=== PATIENT | male | born 1950 | race African-American/Black ===

== ENCOUNTER 2021-06-18 11:40 | Day surgery (SDC) | payer MEDICARE, MEDICAID ==
[~2021-06-18] VITALS: Ht 177.8 cm; Wt 80.8 kg
[2021-06-18] MEDS ORDERED: normal saline 1000ml 1,000 ML IV SCH (12:10)
[2021-06-18] MEDS ORDERED: FOLI1TAB34 PO (12:22)
[2021-06-18] MEDS ORDERED: AMLO10TA13 PO (12:22)
[2021-06-18] MEDS ORDERED: SEVE800T28 (12:22)
[2021-06-18] MEDS ORDERED: CARV6.253 PO (12:22)
[2021-06-18] MEDS ORDERED: LIDOcaine 1% 30ml preserv. free vial ONE (12:24)
[2021-06-18] MEDS ORDERED: midazolam 1 mg/ML 2ml injection ONE (12:24)
[2021-06-18] MEDS ORDERED: fentaNYL/PF 50MCG/1 ML 2ML syringe ONE (12:24)
[2021-06-18] MEDS ORDERED: iohexol 300mg/ml 100ml inj. ONE (12:25)
[2021-06-18] MEDS ORDERED: heparin 1,000 UNITS/NS 500ml 500 ML ONE (12:25)
[2021-06-18 12:38] LABS: BASOPHILS % (AUTO) 0.5 % (0-1); EOSINOPHILS # (AUTO) 0.3 X10'3 (0-0.9); EOSINOPHILS % (AUTO) 4.4 % (0-6); HEMATOCRIT 32.3 % (42.0-52.0); HEMOGLOBIN 10.8 g/dl (14.0-17.9); LYMPHOCYTES # (AUTO) 1.3 X10'3 (1.1-4.8); MEAN CORPUSCULAR HEMOGLOBIN 31.7 PG (27.0-31.0); MEAN CORPUSCULAR HGB CONC 33.5 g/dL (33.0-36.5); MEAN CORPUSCULAR VOLUME 94.7 FL (78-98); MEAN PLATELET VOLUME 7.5 FL (7.4-10.4); MONOCYTES # (AUTO) 1.2 X10'3 (0-0.9); MONOCYTES % (AUTO) 18.5 % (2-12); NEUTROPHILS # (AUTO) 3.6 X10'3 (1.8-7.7); NEUTROPHILS % (AUTO) 56.6 % (42-75); PLATELET COUNT 303 X10'3 (140-440); RED BLOOD COUNT 3.41 X10'6 (4.70-6.10); RED CELL DISTRIBUTION WIDTH 15.8 % (11.5-14.5); WHITE BLOOD COUNT 6.4 X10'3 (4.5-11.0)
[2021-06-18 12:45] VITALS: BP 142/99
[2021-06-18 13:10] LABS: PLATELET ESTIMATE NORMAL; TOTAL CELLS COUNTED 100
[2021-06-18 13:15] LABS: ALBUMIN 3.7 G/DL (3.4-5.0); ANION GAP 14 (8-16); BLOOD UREA NITROGEN 40 MG/DL (7-18); BUN/CREATININE RATIO 3.9 (5.4-32.0); CALCIUM 9.6 MG/DL (8.5-10.1); CHLORIDE 104 MMOL/L (99-107); CREATININE 10.18 MG/DL (0.60-1.10); GLUCOSE 64 MG/DL (70-104); POTASSIUM 4.7 MMOL/L (3.5-5.1); SODIUM 147 MMOL/L (135-145); TOTAL CARBON DIOXIDE 28.7 MMOL/L (24-32); eGFR 6 ML/MIN
[2021-06-18 14:05] VITALS: BP 145/79
[2021-06-18 14:20] VITALS: BP 129/75
[2021-06-18 14:35] VITALS: BP 146/80
[2021-06-18 14:49] VITALS: BP 139/77
== END 2021-06-18 15:00 | disposition home or self-care (01) ==
LOC: SSTAY O 11:40
PROVIDERS: ATTEND Radiology Vascular & Interventional Radiology
DX: T82.858A Stenosis of other vascular prosthetic devices, implants and grafts, initial encounter (principal); Z79.899 Other long term (current) drug therapy; Z79.01 Long term (current) use of anticoagulants; Y83.2 Surgical operation with anastomosis, bypass or graft as the cause of abnormal reaction of the patient, or of later complication, without mention of misadventure at the time of the procedure; Y92.89 Other specified places as the place of occurrence of the external cause
CPT/HCPCS: 36415; 36901; 36902; 36907; 80048; 85025; 85610; 99152; 99153; C1725; C1769; C1894; J1644; J2250; J3010; J3490; Q9967; 85007; C2623

== ENCOUNTER 2022-12-04 06:35 | Day surgery (SDC) | payer BC, OTHER ==
[~2022-12-04] VITALS: Ht 177.8 cm; Wt 75.9 kg
[2022-12-04] VITALS (12 sets, daily range): BP systolic 156–182; BP diastolic 65–91; PULSE 83–98; RESP 14–17; TEMP 98.2; O2SAT 95–98
[~2022-12-04 06:35] MED LIST: AMLO10TA13 PO; CARV6.253 PO; FOLI1TAB34 PO; SEVE800T28
[2022-12-04] MEDS ORDERED: normal saline 1000ml 1,000 ML IV PRN (07:00)
[2022-12-04] MEDS ORDERED: SEVE800T8 PO (07:10)
[2022-12-04 07:34] LABS: BASOPHILS # (AUTO) 0.1 X10'3 (0-0.2); BASOPHILS % (AUTO) 0.9 % (0-1); EOSINOPHILS # (AUTO) 0.2 X10'3 (0-0.9); EOSINOPHILS % (AUTO) 2.8 % (0-6); LYMPHOCYTES # (AUTO) 1.3 X10'3 (1.1-4.8); LYMPHOCYTES % (AUTO) 18.2 % (21-51); MEAN CORPUSCULAR HEMOGLOBIN 30.7 PG (27.0-31.0); MEAN CORPUSCULAR HGB CONC 33.6 g/dL (33.0-36.5); MEAN CORPUSCULAR VOLUME 91.6 FL (78-98); MEAN PLATELET VOLUME 8.3 FL (7.4-10.4); MONOCYTES # (AUTO) 1.1 X10'3 (0-0.9); MONOCYTES % (AUTO) 15.5 % (2-12); NEUTROPHILS # (AUTO) 4.5 X10'3 (1.8-7.7); NEUTROPHILS % (AUTO) 62.6 % (42-75); PRE OP HEMOGLOBIN 11.1 g/dL (14.0-17.9); PRE OP PLATELET COUNT 224 X10'3 (140-440); PRE OP WHITE BLOOD COUNT 7.1 10'3 (4.8-10.8); RED BLOOD COUNT 3.61 X10'6 (4.70-6.10); RED CELL DISTRIBUTION WIDTH 16.4 % (11.5-14.5)
[2022-12-04 07:43] LABS: PROTHROMBIN TIME 10.5 SECONDS (9.0-12.0)
[2022-12-04 07:50] LABS: ALBUMIN 3.3 G/DL (3.4-5.0); ANION GAP 20 (8-16); BLOOD UREA NITROGEN 107 MG/DL (7-18); BUN/CREATININE RATIO 5.6 (10.0-20.0); CALCIUM 9.6 MG/DL (8.5-10.1); CHLORIDE 100 MMOL/L (99-107); CREATININE 19.07 MG/DL (0.60-1.10); GLUCOSE 100 MG/DL (70-104); POTASSIUM 4.6 MMOL/L (3.5-5.1); SODIUM 141 MMOL/L (135-145); TOTAL CARBON DIOXIDE 21.2 MMOL/L (24-32); eCRCL 4 ML/MIN; eGFR 3 ML/MIN
[2022-12-04] MEDS ORDERED: midazolam 1 mg/ML 2ml injection ONE ×3 (08:36→10:05)
[2022-12-04] MEDS ORDERED: LIDOcaine 1% 30ml preserv. free vial ONE (08:36)
[2022-12-04] MEDS ORDERED: fentaNYL/PF 50MCG/1 ML 2ML syringe ONE ×4 (08:36→10:34)
[2022-12-04] MEDS ORDERED: iohexol 300mg/ml 100ml inj. ONE (08:36)
[2022-12-04] MEDS ORDERED: heparin 1,000 UNITS/NS 500ml 500 ML ONE (08:36)
[2022-12-04] MEDS ORDERED: tPA-cathflo 2 MG/2 ml IV flush ONE (09:19)
[2022-12-04] MEDS ORDERED: heparin 1,000unit/ml 10ml vial 10 ML ONE (10:44)
[2022-12-04] MEDS ORDERED: HYDROcodone/acetaminophen 10/325mg tab PO ONE (13:20)
[2022-12-04] MEDS ORDERED: acetaminophen 325mg tablet PO PRN (13:25)
--- NOTE | 2022-12-04 13:45 | NUR ---
12/04/22 @ 1315: Pt c/o 7/10 pain in right shoulder. Pt has large hematoma to right anterior upper chest/shoulder. Held steady pressure, called charge nurse and had her call Dr. Ly. 12/04/22 @ 1320: Dr. Ly at bedside. Ordered [place] X [address] Ly had me apply steady pressure for 15 mins and he ordered a stat Ultrasound. Pt declined norco and asked for tylenol. Tylenol ordered. 12/04/22 @ 1325: US Tech at bedside, Dr. yL wants him to call stat with repot 12/04/22 @ 1345: Tech noticed a small psuedoaneurism. Awaiting Dr. Ly. 12/04/22 @ 1400: Dr. Ly back at bedside and ordered 2nd US so we can hold pressure on the spot in question. Ordered fentanyl prior to holding pressure. US tech at beside with Dr. Ly. Dr. Ly states it is much improving so we don't need to hold pressure and we don't need the fentanyl. Pt cleared for discharge so he can make his dialysis appointment. Will work on discharge instructions.
[2022-12-04] MEDS ORDERED: fentaNYL/PF 50MCG/1 ML 2ML syringe IV STA (14:22)
== END 2022-12-04 14:30 | disposition home or self-care (01) ==
LOC: SSTAY O 06:35
PROVIDERS: ATTEND Radiology Diagnostic Radiology
DX: T82.868A Thrombosis due to vascular prosthetic devices, implants and grafts, initial encounter (principal); E11.22 Type 2 diabetes mellitus with diabetic chronic kidney disease; I12.0 Hypertensive chronic kidney disease with stage 5 chronic kidney disease or end stage renal disease; N18.6 End stage renal disease; Z79.899 Other long term (current) drug therapy; Y83.2 Surgical operation with anastomosis, bypass or graft as the cause of abnormal reaction of the patient, or of later complication, without mention of misadventure at the time of the procedure; Y92.89 Other specified places as the place of occurrence of the external cause
CPT/HCPCS: 36558; 36904; 36907; 76937; 77001; 80048; 85025; 85610; 93971; 99152; 99153; C1725; C1750; C1769; J1644; J2250; J2997; J3010; J3490; J7030; Q9967; 36905; A4620; A9270; C1757; C1894

== ENCOUNTER 2023-01-15 08:02 | Day surgery (SDC) | payer BC, OTHER ==
[~2023-01-15] VITALS: Ht 177.8 cm; Wt 76.6 kg
[~2023-01-15 08:02] MED LIST changes: -SEVE800T28; +SEVE800T8 PO
[2023-01-15 08:25] VITALS: BP 134/74; PULSE 79; RESP 16; TEMP 98; O2SAT 99
[2023-01-15] MEDS ORDERED: normal saline 1000ml 1,000 ML IV PRN (08:25)
[2023-01-15 08:30] VITALS: RESP 14; O2SAT 97
[2023-01-15 08:51] LABS: BASOPHILS % (AUTO) 0.7 % (0-1); EOSINOPHILS # (AUTO) 0.3 X10'3 (0-0.9); HEMATOCRIT 34.4 % (42.0-52.0); HEMOGLOBIN 11.2 g/dl (14.0-17.9); LYMPHOCYTES # (AUTO) 1.2 X10'3 (1.1-4.8); LYMPHOCYTES % (AUTO) 23.4 % (21-51); MEAN CORPUSCULAR HEMOGLOBIN 31.7 PG (27.0-31.0); MEAN CORPUSCULAR HGB CONC 32.4 g/dL (33.0-36.5); MEAN CORPUSCULAR VOLUME 97.7 FL (78-98); MEAN PLATELET VOLUME 8.2 FL (7.4-10.4); MONOCYTES # (AUTO) 0.8 X10'3 (0-0.9); MONOCYTES % (AUTO) 15.6 % (2-12); NEUTROPHILS # (AUTO) 2.9 X10'3 (1.8-7.7); NEUTROPHILS % (AUTO) 55.3 % (42-75); PLATELET COUNT 238 X10'3 (140-440); RED BLOOD COUNT 3.52 X10'6 (4.70-6.10); RED CELL DISTRIBUTION WIDTH 18.1 % (11.5-14.5); WHITE BLOOD COUNT 5.3 X10'3 (4.5-11.0)
[2023-01-15 09:00] LABS: ALBUMIN 3.8 G/DL (3.4-5.0); ANION GAP 13 (8-16); BLOOD UREA NITROGEN 44 MG/DL (7-18); BUN/CREATININE RATIO 4.1 (10.0-20.0); CALCIUM 9.6 MG/DL (8.5-10.1); CHLORIDE 99 MMOL/L (99-107); CREATININE 10.75 MG/DL (0.60-1.10); GLUCOSE 93 MG/DL (70-104); POTASSIUM 4.7 MMOL/L (3.5-5.1); SODIUM 138 MMOL/L (135-145); eCRCL 7 ML/MIN; eGFR 6 ML/MIN
[2023-01-15 09:02] LABS: PROTHROMBIN TIME 10.7 SECONDS (9.0-12.0)
[2023-01-15] MEDS ORDERED: heparin 1,000 UNITS/NS 500ml 500 ML ONE (10:21)
[2023-01-15] MEDS ORDERED: iohexol 300mg/ml 100ml inj. ONE (10:21)
[2023-01-15] MEDS ORDERED: iohexol 300 MG/1 ML 50ml polymer ONE (10:21)
[2023-01-15] MEDS ORDERED: midazolam 1 mg/ML 2ml injection ONE (10:21)
[2023-01-15] MEDS ORDERED: fentaNYL/PF 50MCG/1 ML 2ML syringe ONE (10:21)
[2023-01-15 11:00] VITALS: BP 127/74; PULSE 75; RESP 16; O2SAT 98
== END 2023-01-15 13:11 | disposition home or self-care (01) ==
LOC: SSTAY O 08:02
PROVIDERS: ATTEND Radiology Diagnostic Radiology
DX: Z49.01 Encounter for fitting and adjustment of extracorporeal dialysis catheter (principal); N18.6 End stage renal disease; Z79.899 Other long term (current) drug therapy
CPT/HCPCS: 36589; 80048; 85025; 85610; J1644; J2250; J3010; J7030; Q9967; A4620